=== PATIENT | female | born 1975 | race African-American/Black ===

== ENCOUNTER 2017-10-06 11:16 | Day surgery (SDC) | payer OTHER ==
[2017-10-02 10:40] VITALS: BMI 26.4
[2017-10-06] MEDS ORDERED: IBUPROFEN 400 MG TABLET (FP) PO PRN (11:44)
[2017-10-06] MEDS ORDERED: ACETAMINOPHEN 325 MG TABLET (FP) PO PRN (11:44)
--- NOTE | 2017-10-06 11:44 | HP ---
History & Physical Update - History History: No Change (No change in HP) - Physical Physical: No Change - Assessment Assessment: No Change - Plan Plan: No Change
--- NOTE | 2017-10-06 11:46 | OP ---
Operative Note - Note: Operative Date: 10/06/17 Pre-Operative Diagnosis: Missed Operation: Suction DC Post-Operative Diagnosis: Same as Pre-op Surgeon: Patricia Lorenzo Anesthesia: General Estimated Blood Loss (mls): 30 Operative Report Dictated: Yes
[2017-10-06 11:57] LABS: BASO % 1.2 % (0-2.0); EOS % 3.7 % (0-4.5); HEMATOCRIT 35.2 % (32.4-45.2); HEMOGLOBIN 11.9 GM/dL (10.7-15.3); LYMPH % 35.7 % (8-40); MCH 31.8 pg (25.7-33.7); MCHC 33.8 g/dl (32.0-36.0); MEAN CELL VOLUME 94.3 fl (80-96); MEAN PLT VOLUME 8.4 fl (7.5-11.1); MONO % 6.8 % (3.8-10.2); NEUT % 52.6 % (42.8-82.8); PLATELET COUNT 213 K/MM3 (134-434); RBC 3.74 M/mm3 (3.60-5.2); RDW 13.8 % (11.6-15.6); WHITE BLOOD COUNT 6.2 K/mm3 (4.0-10.0)
[2017-10-06] MEDS ORDERED: ONDANSETRON 4 MG/2 ML VIAL IVPUSH PRN (12:42)
[2017-10-06] MEDS ORDERED: oxyCODONE HCL 5 MG TABLET PO PRN (12:42)
[2017-10-06] MEDS ORDERED: LACTATED RINGERS SOLUTION 1,000 ML IV SCH (12:45)
[2017-10-06] MEDS ORDERED: PROPOFOL 20 ML ONE ×3 (12:47)
[2017-10-06] MEDS ORDERED: KETOROLAC TROMETHAMINE 30 MG/1 ML VIAL IVPUSH PRN (13:13)
[2017-10-06 15:05] VITALS: TEMP 98.4
[2017-10-06 16:39] VITALS: BP 115/69; PULSE 86
--- NOTE | 2017-10-07 18:14 | PATH ---
Surgical Pathology Report Patient Name: TOR MENG [facility]. Rec. #: [id number] /Age/Gender: 1975 (Age: 42) / F Account: [id number] Location: [facility] SURGICAL Taken: 10/06/2017 Received: 10/06/2017 Reported: 10/07/2017 Physicians: Patricia Lorenzo M.D. Specimen(s) Received PRODUCTS OF CONCEPTION Clinical History Missed Final Diagnosis PRODUCTS OF CONCEPTION: SCATTERED TROPHOBLASTIC TISSUE ADMIXED WITH DECIDUAL TISSUE AND BLOOD, CONSISTENT WITH PRODUCTS OF CONCEPTION. FRAGMENTS OF HYPERSECRETORY TYPE ENDOMETRIUM PRESENT. Electronically Signed Shivani Phillips M.D. Gross Description Received in formalin labeled "products of conception," is a 5.0 x 4.0 x 0.4 cm aggregate of jacques red soft tissue fragments. No definite villous tissue or somatic tissue is identified. The formalin is filtered and the specimen is entirely submitted in 4 cassettes. /10/06/2017 saudi/10/06/2017
== END 2017-10-06 16:39 | disposition home or self-care (01) ==
LOC: JASU-SURG 11:16
PROVIDERS: ATTEND Obstetrics & Gynecology
PROC: 10D17ZZ Extraction of Products of Conception, Retained, Via Natural or Artificial Opening (ICD-10-PCS; principal; 2017-10-06 12:30)
DX: O02.1 Missed abortion (principal)
CPT/HCPCS: 36415; 85025; 86850; 86900; 86901; 88305-TC; 94760